=== PATIENT | male | born 1965 | race Caucasian/White ===

== ENCOUNTER → 2016-07-23 11:00 | Day surgery (SDC) | payer OTHER ==
[~2016-07-23 11:00] MED LIST: Buffered Lidocaine 1% SYRIN* 3 ML/SYR SYRINGE INTRADERM ONE; Bupivacaine 0.5% SDV PF* 30 ML VIAL ONE; Clindamycin 900 MG IVPREMIX(* 900 MG/50 ML SDV IV ONE; Dexamethasone IV* 4 MG/ML 1 ML (4 MG) IV SLOW PU ONE; Dexamethasone IV* 4 MG/ML 1 ML (4 MG) ONE; DiMENhydriNATE IV* 50 MG/ML VIAL IV PUSH PRN; Famotidine IV* 10 MG/ML 2 ML (20 mg) IV ONE; Famotidine IV* 10 MG/ML 2 ML (20 mg) ONE; Glycopyrrolate IV* 0.2 MG/ML 1 ML VIAL ONE; HYDROmorphone* 1 MG/ML 1 ML SYR IV PRN; HYDROmorphone* 1 MG/ML 1 ML SYR ONE; Ketorolac INJ* 30 MG/ML 1 ML VIAL ONE; Lidocaine 2% PF* 5 ML VIAL ONE; Midazolam* 1 MG/ML 5 ML VIAL (5 MG) ONE; Ondansetron INJ* 2 MG/ML VIAL IV PRN; Ondansetron INJ* 2 MG/ML VIAL ONE; PROCHLORPERAZINE INJ 5 MG/ML 2 ML VIAL IV PRN; Phenylephrine IV* 40 MCG/ML 10 ML SYRINGE ONE; Propofol* 10 MG/ML 20 ML BTL IV PUSH ONE; Scopolamine 1.5 mg* PATCH TRANSDERM PRN; Scopolomine PATCH Remove* 1 NOTE MISC PATCH OFF ONE; fentaNYL* 50 MCG/ML 2 ML VIAL (100 MCG VIAL) IV PRN; fentaNYL* 50 MCG/ML 2 ML VIAL (100 MCG VIAL) ONE; oxyCODONE TAB* 5 MG TAB ONE
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
[2016-07-23 17:05] VITALS: BP 97/61
--- NOTE | 2016-07-23 21:47 | RAD ---
CPT II Codes: 6045F INDICATION: Left ankle osteochondral defect repair. Fluoroscopic services provided for referring physician. Approximately 7 seconds of fluoroscopy time was used. 3 views demonstrates hardware in the distal tibia. IMPRESSION: Fluoroscopic services provided for referring physician.
--- NOTE | 2016-07-24 11:38 | OP ---
DATE OF OPERATION: 07/23/16 [facility] DATE OF : 61 SURGEON: Saleem Fallon MD DATA COMMUNICATIONS ENGINEER: Carey Barry PA-C ANESTHESIOLOGIST: Kingston Hampton MD ANESTHESIA: General PRE-OP DIAGNOSIS: Left medial osteochondral defect of the talus. POST-OP DIAGNOSIS: Left medial osteochondral defect of the talus. OPERATIVE PROCEDURE: Allograft reconstruction, left medial OCD. DESCRIPTION OF PROCEDURE: The patient was taken to the operating room where a longitudinal incision was made over the distal medial malleolus, anterior capsulotomy made directly off the deltoid tendon and then we protected the posterior tibial tendon with a small Mohr retractor. Microsagittal saw was used to divide the medial malleolus, clipping this distally with a Hintermann retractor. The medial osteochondral defect was small, 5 to 6 mm in diameter and about 7 to 8 mm in length. We overdrilled this with a 6.5 mm diameter _ drill to a depth of 20 mm. We then harvested a matching bone graft from the fresh talar allograft, also 6.5 mm in depth. This was placed through the cannula and then driven down flush with the defect. We then repaired the medial malleolus after irrigating thoroughly using 4.0 mm titanium screws of the Asnis screw system. X-rays intraoperatively showed satisfactory position of the hardware. We irrigated thoroughly, closing the capsule with 2-0 Vicryl sutures and marcell for the skin, a compression dressing plaster splint applied. [id number]/[facility] #: [id number] MTDMary Kate
== END | disposition home or self-care (01) ==
LOC: OR 11:00
PROVIDERS: ATTEND Orthopaedic Surgery
DX: M21.6X2 Other acquired deformities of left foot (principal); X58.XXXS Exposure to other specified factors, sequela; Z79.82 Long term (current) use of aspirin; Z88.0 Allergy status to penicillin; I25.2 Old myocardial infarction; I25.10 Atherosclerotic heart disease of native coronary artery without angina pectoris; Z95.5 Presence of coronary angioplasty implant and graft; K21.9 Gastro-esophageal reflux disease without esophagitis; M19.90 Unspecified osteoarthritis, unspecified site; M54.5 Low back pain; G89.29 Other chronic pain; Y92.89 Other specified places as the place of occurrence of the external cause; Y99.0 Civilian activity done for income or pay
CPT/HCPCS: 76000; A9270-GY; C1713; C1776; J1100; J1170; J1885; J2250; J2405; J2704; J3010

== ENCOUNTER 2016-12-24 07:18 | Day surgery (SDC) | payer OTHER ==
[~2016-12-24 07:18] MED LIST changes: +Buffered Lidocaine 0.9% SYRIN* 5 ML/SYR SYRINGE INTRADERM ONE; -Buffered Lidocaine 1% SYRIN* 3 ML/SYR SYRINGE INTRADERM ONE; -Bupivacaine 0.5% SDV PF* 30 ML VIAL ONE; -Clindamycin 900 MG IVPREMIX(* 900 MG/50 ML SDV IV ONE; -Dexamethasone IV* 4 MG/ML 1 ML (4 MG) IV SLOW PU ONE; -Dexamethasone IV* 4 MG/ML 1 ML (4 MG) ONE; -DiMENhydriNATE IV* 50 MG/ML VIAL IV PUSH PRN; -Famotidine IV* 10 MG/ML 2 ML (20 mg) ONE; -Glycopyrrolate IV* 0.2 MG/ML 1 ML VIAL ONE; -HYDROmorphone* 1 MG/ML 1 ML SYR IV PRN; -HYDROmorphone* 1 MG/ML 1 ML SYR ONE; -Ketorolac INJ* 30 MG/ML 1 ML VIAL ONE; -Lidocaine 2% PF* 5 ML VIAL ONE; -Midazolam* 1 MG/ML 5 ML VIAL (5 MG) ONE; -Ondansetron INJ* 2 MG/ML VIAL IV PRN; -Ondansetron INJ* 2 MG/ML VIAL ONE; -PROCHLORPERAZINE INJ 5 MG/ML 2 ML VIAL IV PRN; -Phenylephrine IV* 40 MCG/ML 10 ML SYRINGE ONE; -Propofol* 10 MG/ML 20 ML BTL IV PUSH ONE; -Scopolamine 1.5 mg* PATCH TRANSDERM PRN; -Scopolomine PATCH Remove* 1 NOTE MISC PATCH OFF ONE; -fentaNYL* 50 MCG/ML 2 ML VIAL (100 MCG VIAL) IV PRN; -fentaNYL* 50 MCG/ML 2 ML VIAL (100 MCG VIAL) ONE; -oxyCODONE TAB* 5 MG TAB ONE
[2016-12-24] MEDS ORDERED: Buffered Lidocaine 0.9% SYRIN* 5 ML/SYR SYRINGE ONE (08:08)
[2016-12-24] MEDS ORDERED: Famotidine IV* 10 MG/ML 2 ML (20 mg) ONE (08:08)
[2016-12-24] MEDS ORDERED: Bupivacaine 0.5% SDV PF* 30 ML VIAL ONE ×2 (08:38→09:03)
[2016-12-24] MEDS ORDERED: Ondansetron INJ* 2 MG/ML VIAL ONE (08:47)
[2016-12-24] MEDS ORDERED: fentaNYL* 50 MCG/ML 2 ML VIAL (100 MCG VIAL) ONE (08:47)
[2016-12-24] MEDS ORDERED: Ketorolac INJ* 30 MG/ML 1 ML VIAL ONE (08:47)
[2016-12-24] MEDS ORDERED: Lidocaine 2% PF * 5 ML VIAL ONE (08:47)
[2016-12-24] MEDS ORDERED: Dexamethasone IV* 4 MG/ML 1 ML (4 MG) ONE (08:47)
[2016-12-24] MEDS ORDERED: Propofol* 10 MG/ML 20 ML BTL IV PUSH ONE (08:47)
[2016-12-24] MEDS ORDERED: Midazolam* 1 MG/ML 5 ML VIAL (5 MG) ONE (08:47)
[2016-12-24] MEDS ORDERED: Clindamycin 900 MG IVPREMIX(* 900 MG/50 ML SDV IV ONE (08:51)
[2016-12-24] MEDS ORDERED: HYDROmorphone* 1 MG/ML 1 ML SYR IV PRN (08:58)
[2016-12-24] MEDS ORDERED: Acetaminophen TAB* 325 MG PO PRN (08:58)
[2016-12-24] MEDS ORDERED: oxyCODONE TAB* 5 MG TAB PO PRN (08:58)
[2016-12-24] MEDS ORDERED: DiMENhydriNATE IV* 50 MG/ML VIAL IV PUSH PRN (08:58)
[2016-12-24 11:32] VITALS: BP 129/78
--- NOTE | 2016-12-25 01:17 | OP ---
DATE OF OPERATION: 12/24/16 - [facility] DATE OF : 61 SURGEON: Saleem Fallon MD SUBSTATION WIREMAN: Carey Barry PA-C ANESTHESIOLOGIST: Gissel Jarvis MD ANESTHESIA: General PRE-OP DIAGNOSIS: Painful hardware, right fibula, left medial malleolus. POST-OP DIAGNOSIS: Painful hardware, right fibula, left medial malleolus. OPERATIVE PROCEDURE: Removal of hardware, right fibula, left medial malleolus. DESCRIPTION OF PROCEDURE: The patient was taken to the operating room, where the right fibula was exposed through a longitudinal incision directly over the prominent hardware. Small fragment screws were removed and the plate removed as well. There also was a front to back lag screw, which was removed with a small fragment screw vibratory pile driver. Irrigation was performed, closed by Vicryl and marcell for the skin. The left medial malleolus was exposed through the previous 4 cm incision. There was an antiglide screw at the medial border and two at the medial malleolus, all three removed with appropriate screwdriver as well as the washers. We irrigated this wound and closed with Vicryl and marcell for the skin. Bilateral compression dressings applied. [id number]/[facility] #: [id number] MTDD
== END 2016-12-24 11:44 | disposition home or self-care (01) ==
LOC: OR 07:18
PROVIDERS: ATTEND Orthopaedic Surgery
DX: T84.84XA Pain due to internal orthopedic prosthetic devices, implants and grafts, initial encounter (principal); Y79.2 Prosthetic and other implants, materials and accessory orthopedic devices associated with adverse incidents; Z79.82 Long term (current) use of aspirin; Z88.0 Allergy status to penicillin; Z87.891 Personal history of nicotine dependence; I25.10 Atherosclerotic heart disease of native coronary artery without angina pectoris; I25.2 Old myocardial infarction; Z95.5 Presence of coronary angioplasty implant and graft; Z85.47 Personal history of malignant neoplasm of testis; M54.5 Low back pain; G89.29 Other chronic pain
CPT/HCPCS: 88300; J1100; J1885; J2250; J2405; J2704; J3010

== ENCOUNTER 2018-07-20 11:03 | Emergency (ER) | payer OTHER, MEDICARE ==
[2018-07-20 11:44] VITALS: BP 139/75
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
== END 2018-07-20 13:41 | disposition home or self-care (01) ==
LOC: UCCORT 11:03
DX: M72.2 Plantar fascial fibromatosis (principal); Z91.030 Bee allergy status; Z88.0 Allergy status to penicillin; Z79.82 Long term (current) use of aspirin; Z87.891 Personal history of nicotine dependence
CPT/HCPCS: 99211; G0463